=== PATIENT | female | born 2000 | race Hispanic/Latino ===

== ENCOUNTER 2018-06-11 20:20 | Emergency (ER) | payer BC ==
[2018-06-11 20:46] VITALS: BP 141/88; PULSE 84; RESP 18; TEMP 98.2; O2SAT 98
[2018-06-11] MEDS ORDERED: Tmp-Smz 800 mg-160 mg DS Tab PO STA (21:40)
[2018-06-11] MEDS ORDERED: Tmp-Smz 800 mg-160 mg DS Tab ONE (21:45)
--- NOTE | 2018-06-11 21:45 | ED PDOC ---
HPI: Female Pain Time Seen by Provider: 06/11/18 20:51 Chief Complaint (Nursing): Female Genitourinary History Per: Patient History/Exam Limitations: no limitations Onset/Duration Of Symptoms: Hrs Current Symptoms Are (Timing): Still Present Associated Symptoms: Nausea. denies: Fever, Chills, Vomiting Additional Complaint(s): No PMHx presenting with urinary symptoms of frequency, urgency, dysuria, and suprapubic pressure x 1 day. States she's had a UTI before, was recently treated few months ago with macrobid. No back pain, no fevers, no chills. Past Medical History Reviewed: Historical Data, Nursing Documentation, Vital Signs Vital Signs: Last Vital Signs Temp 98.2 F 06/11/18 20:41 Pulse 84 06/11/18 20:41 Resp 18 06/11/18 20:41 BP 141/88 06/11/18 20:41 Pulse Ox 98 06/11/18 20:41 - Medical History PMH: No Chronic Diseases - Family History Family History: States: Unknown Family Hx - Home Medications Home Medications: Ambulatory Orders Medication Instructions Recorded Sulfamethoxazole/Trimethoprim 1 tab PO BID 3 Days #5 tab 06/11/18 [Bactrim DS 800 mg-160 mg] - Allergies Allergies/Adverse Reactions: Allergies Allergy/AdvReac Type Severity Reaction Status Date / Time No Known Allergies Allergy Verified 06/11/18 20:41 Review of Systems ROS Statement: Except As Marked, All Systems Reviewed And Found Negative Constitutional: Negative for: Fever, Chills Genitourinary Female: Positive for: Dysuria, Frequency. Negative for: Vaginal Discharge, Vaginal Bleeding Physical Exam - Reviewed Nursing Documentation Reviewed: Yes Vital Signs Reviewed: Yes - Physical Exam Appears: Positive for: Well, Non-toxic, No Acute Distress Head Exam: Positive for: ATRAUMATIC, NORMAL INSPECTION, NORMOCEPHALIC Skin: Positive for: Normal Color, Warm, DRY Eye Exam: Positive for: EOMI, Normal appearance, PERRL ENT: Positive for: Normal ENT Inspection Neck: Positive for: Normal, Painless ROM Cardiovascular/Chest: Positive for: Regular Rate, Rhythm Respiratory: Positive for: CNT, Normal Breath Sounds Gastrointestinal/Abdominal: Positive for: Normal Exam, Soft. Negative for: Tenderness, Organomegaly, Mass, Distended, Guarding Back: Positive for: Normal Inspection Extremity: Positive for: Normal ROM Neurologic/Psych: Positive for: Alert, Oriented - ECG O2 Sat by Pulse Oximetry: 98 Pulse Ox Interpretation: Normal Medical Decision Making Medical Decision Making: Patient presenting with urinary symptoms x 1 day --Very well appearing, normal vitals --Symptoms consistent with simple cystitis --Patient already taking pyridium --Will prescribe Bactrim --Advised patient to followup with [facility] as scheduled as well as primary care provider Disposition - Clinical Impression Clinical Impression: Urinary tract infection - Disposition Referrals: Suzan Rodriguez [Outside] Disposition: Routine/Home Disposition Time: 21:47 Condition: STABLE Prescriptions: Sulfamethoxazole/Trimethoprim [Bactrim DS 800 mg-160 mg] 1 tab PO BID 3 Days #5 tab Instructions: Urinary Tract Infections in Adults Forms: [employer] (Frisian)
== END 2018-06-11 22:05 | disposition home or self-care (01) ==
LOC: H.ER 20:20
DX: N39.0 Urinary tract infection, site not specified (principal)